=== PATIENT | female | born 1935 | race Caucasian/White ===

== ENCOUNTER 2022-09-28 06:53 | Day surgery (SDC) | payer MEDICARE, BC ==
[~2022-09-28] VITALS: Ht 160 cm; Wt 61.4 kg
[~2022-09-28 06:53] MED LIST: AMLO5TAB66 PO; ASPI-1450 PO; ASPIRIN 81 MG CHEWABLE TABLET ONE; ASPIRIN 81 MG CHEWABLE TABLET PO ONE; ATEN100T92 PO; DIAZEPAM 5 MG TABLET ONE; DIAZEPAM 5 MG TABLET PO ONE; DiphenhydrAMINE HCL 50 MG CAPSULE ONE; DiphenhydrAMINE HCL 50 MG CAPSULE PO ONE; ESTR0.5T PO; ISOS30TA68 PO; LISI20TA24 PO; MAGN296S30 PO; MEDR2.5T6 PO; SODIUM CHLORIDE 0.9% 1,000 ML ONE; ZINC50TA64 PO
[2022-09-28] MEDS ORDERED: SODIUM CHLORIDE 0.9% 1,000 ML IV ONE (07:00)
[2022-09-28] MEDS ORDERED: LIDOCAINE/PF 1% 30 ML VIAL ONE (07:24)
[2022-09-28] MEDS ORDERED: SODIUM BICARBONATE 50 MEQ/50 ML VIAL ONE (07:24)
[2022-09-28] MEDS ORDERED: IOHEXOL 300 MG/ML 100 ML VIAL ONE (07:25)
[2022-09-28] MEDS ORDERED: HEPARIN SODIUM 1000 UNITS/NS 1,000 ML ONE (07:25)
[2022-09-28] MEDS ORDERED: DIAZEPAM 5 MG TABLET PO ONE (09:00)
[2022-09-28] MEDS ORDERED: DiphenhydrAMINE HCL 50 MG CAPSULE PO ONE (09:00)
[2022-09-28] MEDS ORDERED: ASPIRIN 81 MG CHEWABLE TABLET PO ONE (09:00)
[2022-09-28 09:01] VITALS: BP 157/76
[2022-09-28] MEDS ORDERED: FentaNYL CITRATE PF 100 MCG/2 ML VIAL ONE (09:15)
[2022-09-28] MEDS ORDERED: MIDAZOLAM HCL 2 MG/2 ML VIAL ONE (09:15)
[2022-09-28] MEDS ORDERED: DiphenhydrAMINE HCL 50 MG/ML VIAL ONE (09:43)
[2022-09-28] MEDS ORDERED: HEPARIN SODIUM 1000 UNITS/NS 1,000 ML IARTER ONE (09:45)
[2022-09-28] MEDS ORDERED: HEPARIN SODIUM,PORCINE 1,000 UNITS/ML 10 ML VIAL IVP ONE (09:45)
[2022-09-28] MEDS ORDERED: IOHEXOL 300 MG/ML 100 ML VIAL IARTER ONE (09:45)
[2022-09-28] MEDS ORDERED: MIDAZOLAM HCL 2 MG/2 ML VIAL IVP ONE ×2 (09:45→10:15)
[2022-09-28] MEDS ORDERED: FentaNYL CITRATE PF 100 MCG/2 ML VIAL IVP ONE ×2 (09:45→10:15)
[2022-09-28] MEDS ORDERED: DiphenhydrAMINE HCL 50 MG/ML VIAL IVP ONE (09:45)
[2022-09-28] MEDS ORDERED: LIDOCAINE 1% 30 ML/SOD BICARB 8.4% 4 ML SQ ONE (09:45)
[2022-09-28] MEDS ORDERED: TICAGRELOR 90 MG TABLET ONE (09:57)
[2022-09-28] MEDS ORDERED: TICAGRELOR 90 MG TABLET PO ONE (10:15)
[2022-09-28 10:20] VITALS: BP 158/72
== END 2022-09-28 14:35 | disposition home or self-care (01) ==
LOC: CATHLAB 06:53
PROVIDERS: ATTEND Internal Medicine Interventional Cardiology
DX: I25.110 Atherosclerotic heart disease of native coronary artery with unstable angina pectoris (principal); M19.90 Unspecified osteoarthritis, unspecified site; E78.5 Hyperlipidemia, unspecified; Z79.899 Other long term (current) drug therapy; Z79.01 Long term (current) use of anticoagulants; Z98.890 Other specified postprocedural states
CPT/HCPCS: 85610; 85730; 36415; 99152; 99153; 93005; 93458; 92978; C9600; C1757; C1887; C1760; C1874; J1200; J3010; J1644; J3490 ×2; J2250; J7030; Q9967; C1753; 75960; 92920; 92928